=== PATIENT | female | born 1990 | race Caucasian/White ===

== ENCOUNTER 2023-01-21 18:31 | Outpatient (CLI) | payer OTHER, SELFPAY ==
[2023-01-21 18:33] VITALS: BP 139/84; PULSE 95; RESP 18; TEMP 37.3; O2SAT 99; BMI 33.6
--- NOTE | 2023-01-21 18:53 | ED.NURSE ---
spoke with OB RN, transferred to OB via wheelchair
[2023-01-21 19:05] VITALS: PULSE 78; O2SAT 98
[2023-01-21 19:07] VITALS: BP 115/59; PULSE 79
[2023-01-21 19:10] VITALS: PULSE 71; O2SAT 98
[2023-01-21 19:25] VITALS: RESP 18; TEMP 36.6
--- NOTE | 2023-01-21 20:33 | PC.OBNST ---
NST Note NST Note Start: 01/21/23 19:02 Freq: ONCE Status: Active Protocol: Document 01/21/23 19:55 SHIRLENE (Rec: 01/21/23 20:33 SHIRLENE [id number]) NST Note 1 Para (# of births) 0 EDC 02/20/23 Gestational Age In Weeks & Days 35 Weeks & 5 Days Patient Presented with Complaint(s) of Contractions/cramping,Other Other Complaints Chest, RUQ, and lower abdominal tightening. Reactive Yes Appropriate for Gestational Age Yes ERNESTINE Ashley, RNC Date 01/21/23 Reactive Yes Appropriate for Gestational Age Yes ERNESTINE Chase, RN Date 01/21/23 OB NST charge Yes Complete NST Note via Write Note Yes The provider's electronic signature indicates the NST is reactive/appropriate for gestational age. *Note to provider: If an addendum is required, open the patient's chart and click on the note under the Nurse/Allied Health tab.
--- NOTE | 2023-01-21 21:06 | P.OBLDTN_ITS ---
OB - Triage/Final Diagnosis Visit Information Time Seen by Provider: 21:07 Date Seen: 01/21/23 Date of evaluation: 01/21/23 Narrative: The patient is a 32 year old 1 para 0 at 35 weeks gestation who presents with chest pressure and concerns. Patient states that 2 weeks ago she had episode of presyncope while seated. She got hot, nauseated, felt heart was racing and felt like she was going to pass out. She was very dizzy. Her partner checked her pulse and bp which they report her pulse was high, but not sure how high. She has history of getting dizzy off and on. Has history of syncope prior to . However, the last 2 weeks her wooziness and dizziness has been worsening. She describes this has feeling like she might pass out. Feels hot, has palpitations, nausea. She sits down if she has been standing, but it can notably happen while driving or seated. This morning, she woke with rlq pain. This resolved after a few moments of walking around. She has noted her abdomen is more tight than it used to be. She developed chest tightness that waxed and waned throughout the day. When it peaks, she feels out of breath and takes deep breaths trying to remedy it. She reports her heart races and her sob is sometimes associated with her chest tightness. She reports normal movement. No urinary or vaginal discharge. She reports no bleeding. She feels quite winded with any activity. Reports if she goes up the stairs she sees spots and stars and feels woozy. She has been trying to stay hydrated. Her belly has been hard all day but she reports she was not as hydrated today. When she lies on her side she feels her belly soften. She reports no history of blood clot, stroke, heart concern. Reason for evaluation: other (chest tightness) Evaluation Vital signs: Vital Signs - 24 hr 01/21/23 18:33 01/21/23 19:05 01/21/23 19:07 Temperature 99.1 F Pulse Rate 79 Pulse Rate [Right Pulse Oximeter] 95 Respiratory Rate 18 Blood Pressure 115/59 L Blood Pressure [Right Upper Arm] 139/84 Pulse Oximetry 99 98 Oxygen Delivery Method Room Air 01/21/23 19:10 01/21/23 19:25 Temperature 97.9 F Pulse Rate Pulse Rate [Right Pulse Oximeter] Respiratory Rate 18 Blood Pressure Blood Pressure [Right Upper Arm] Pulse Oximetry 98 Oxygen Delivery Method Comments: Exam: Heart: RRR, no murmurs Lungs: Ctab Legs: trace edema, no tenderness, warmth, erythema Abdomen: Gravid, nontender. [place]- 1 contraction in 20 minutes Psych: Appropriate, slightly anxious EKG: rate 82, nsr, right axis deviation No EKg to compare to Fetus (Single) Heart Rate Baseline: 125 Commercial Kitchen Service Technician Variability: Moderate (6-25) Monitor Accelerations: Present Monitor Decelerations: None Final Diagnosis (1) 35 weeks gestation of : Status: Acute Problem details: NST reassuring, 1 contraction in 20 minutes. No active concern for labor. (2) Chest pressure: Status: Acute Problem details: We discuss with chest pressure, palpitations, dizziness, I am not able to complete work up on Labor and delivery. I recommend ER evaluation for rule out PE and cardiac monitoring (EKG was nsr, however, story could be concerning for SVT). Patient declines any further work up and leaves AMA. Form completed to have her leave AMA. will follow up with Dr. Guerrero on Friday as scheduled. Will consider zio vs holter outpatient. (3) Palpitations: Status: Acute (4) Dizziness: Status: Acute
== END 2023-01-21 21:15 | disposition left against medical advice (07) ==
LOC: ED 18:49 → OB OUT 18:50 → OB 18:50
PROVIDERS: Emergency Provider Emergency Medicine Emergency Medical Services; PCP Family Medicine; Visit Provider Family Medicine
DX: O47.03 False labor before 37 completed weeks of gestation, third trimester (principal); Z3A.35 35 weeks gestation of pregnancy; R07.89 Other chest pain
CPT/HCPCS: 59025; 93005; 99213

== ENCOUNTER 2023-02-23 17:20 | Inpatient (IN) | payer OTHER, SELFPAY ==
--- OUTSIDE RECORDS SUMMARY | 2023-02-23 17:29 | XMS_ITS | Referral Summary ---
Author Name Unknown Organization [facility] Address [address] [place] [address] Care Team Providers Care Emergency Dept Tech Name Role Phone Elsewhere, Pcp Primary Care Provider Unavailabl e Source Comments Patient records contain information from all sites at [facility]. For routine questions regarding patient records, call [phone] during business hours, M-F 8:00 AM - 5:00 PM Central Time. Record requests for emergency care only can be directed to [phone] at any time.[facility] Allergies No known active allergies Medications Medication Sig Dispensed Refills Start Date End Date Status amoxicillin-pot clavulanate (AUGMENTIN) 875-125 mg per tabletIndications:Sinu sitis Take 1 tablet by mouth 2 (two) times a day. 14 tablet 0 07/30/2021 Active Active Problems No known active problems Immunizations Name Administration Dates Next Due 4vHPV (discontinued) 12/21/2007,05/04/2007,09/25 DT, Pediatric 09/29/2006 DTP 11/24/1992, 2,1991,1991 DTaP (Infanrix, [employer]) 09/30/2003,10/1996,11/24/1992,1991,1991,1991 H1N1 All Forms 01/09/2009 H1N1 Inj 01/09/2009 HepA, Unspecified 05/04/2007,09/25/2006 HepB, Unspecified 08/18/1995, 6,06/13/1993,1992,01/10/1993 Hib, Unspecified 1991,1991, 2 IPV 11/18/1996, 3,1991,1991 Influenza TIV (IM) 11/28/2009, 9,12/15/2007,2006 Influenza Whole 03/08/2014 Influenza, Seasonal, Injectable 11/29/19 10,11/09/2008,12/15/2007,2006 Influenza, Unspecified 11/12/2016,2015,11/28/2009,2008 MCV4 (Menactra) 08/28/2009 MMR 09/30/2003,09/29/1992 OPV 11/18/1996, 3,1991,1991 Td (Adult), adsorbed 09/30/2003 Tdap 02/11/2013 influenza vaccine quad (FLUZONE/FLUARIX) (6 months and older)(PF) 11/12/2018,11/29/2017 Social History Tobacco Use Types Packs/Day Years Used Date Smoking Tobacco: Never Smokeless Tobacco: Never Tobacco Cessation:Counseling Given: Not Answered Nutrition Answer Date Recorded Nutrition: EVOO Fat Source Unknown 04/13 Nutrition: Servings of Fruits/Vegetables per Day Not on file 04/13/2020 Dental Answer Date Recorded Dental: Regular Dentist Unknown 04/14/19 21 Sex and Gender Information Value Date Recorded Sex Assigned at Not on file Gender Identity Not on file Sexual Orientation Not on file Last Filed Vital Signs Vital Sign Reading Time Taken Comments Blood Pressure 115/84 12/10/2021 3:48 PM CDT Pulse 70 12/10/2021 3:48 PM CDT Temperature 36.6 ??C (97.9 ??F) 12/10/2021 3:48 PM CD T Respiratory Rate 16 02/15/2015 3:22 PM STAFF FORESTER Oxygen Saturation 98% 12/10/2021 3:48 PM CDT Inhaled Oxygen Concentration - - Weight 104 kg (229 lb 4.5 oz) 02/15/2015 3:22 PM STAFF FORESTER Height 184 cm (6' 0.44) 02/15/2015 3:22 PM STAFF FORESTER Body Mass Index 30.72 02/15/2015 3:22 PM STAFF FORESTER Plan of Treatment Not on file Care Teams Emergency Dept Tech Relationship Specialty Start Date End Date Elsewhere, Pcp PCP - General 02/10/18
--- OUTSIDE RECORDS SUMMARY | 2023-02-23 17:29 | XMS_ITS ---
Author Name Unknown Organization [facility] Address [address] [place] [address] Care Team Providers Care Principal Quality Engineer Name Role Phone Unavailable Unavailable Unavailable Surgery Details Not on file Complications Check Surgery Details section. Procedure Estimated Blood Loss Check Surgery Details section. Procedure Findings Check Surgery Details section. Procedure Specimens Taken Check Surgery Details section.
--- OUTSIDE RECORDS SUMMARY | 2023-02-23 17:29 | XMS_ITS | Clinical Summary ---
Author Name Unknown Organization [facility] Address [address] [place] [address] Care Team Providers Care Commissary Assistant Name Role Phone Elsewhere, Pcp Primary Care Provider Unavailabl e Source Comments Patient records contain information from all sites at [facility]. For routine questions regarding patient records, call [phone] during business hours, M-F 8:00 AM - 5:00 PM Central Time. Record requests for emergency care only can be directed to [phone] at any time.[facility] Allergies No known active allergies Medications [...] quad (FLUZONE/FLUARIX) (6 months and older)(PF) 11/12/2018,11/29/2017 Family History Medical History Relation Name Comments Hypertension Father Leukemia Father Lung cancer Mother Prostate cancer Uncle Maternal Relation Name Status Comments Father Mother Uncle Maternal Social History Tobacco Use Types Packs/Day Years [...] T Respiratory Rate 16 02/15/2015 3:22 PM FASHION ARTIST Oxygen Saturation 98% 12/10/2021 3:48 PM CDT Inhaled Oxygen Concentration - - Weight 104 kg (229 lb 4.5 oz) 02/15/2015 3:22 PM FASHION ARTIST Height 184 cm (6' 0.44) 02/15/2015 3:22 PM FASHION ARTIST Body Mass Index 30.72 02/15/2015 3:22 PM FASHION ARTIST Plan of Treatment Health Maintenance Due Date Last Done Comments HIV Screening 1991 Hepatitis C Screening 1991 Depression Screening (Annual PHQ-2) 02/10/2022 COVID-19 Vaccine ( season) 2022 02/04/2022, 09/28/2021, 04/11/2020, Additional history exists Cervical Cancer Screening 02/13/2024 02/12/2021, 03/2013 DTaP,Tdap,and Td Vaccines (11 - Td or Tdap) 11/29/2032 11/29/2022, 02/11/2013, 09/29/2006, Additional history exists Hepatitis B Vaccines Completed 08/18/1995, 03/20/1995, 06/13/1993, Additional history exists HPV Vaccines Completed 12/21/2007, 04/11, 09/25/2006 Influenza Vaccine Completed 11/08/2022, , 11/12/2018, Additional history exists Pneumococcal vaccine (0-64 years) Aged Out No longer eligible based on patient's age to complete this topic Care Teams Commissary Assistant Relationship Specialty Start Date End Date Elsewhere, Pcp PCP - General 02/10/18
[2023-02-23 17:33] VITALS: BP 130/74; PULSE 74; TEMP 36.6
--- NOTE | 2023-02-23 18:53 | PM.OBHPLI ---
OB - H&P: HPI Labor/Induction History of Present Illness Date Seen: 02/23/23 Chief Complaint: The patient is a 32 year old 1 para 1 at 40+2 weeks gestation by 7 week US, who presents for IOL for post dates and unstable lie. Chief complaint: maternity : 1 Para: 0 Narrative: Florinda Saldivar is a 32 year old at 40+1 week by 7 week US here for IOL for unstable lie and post dates. Fetus was found to be breech by US at 37 weeks, was cephalic by 38 weeks and has remained vertex since. She reports occasional mild cramping. No regular contractions. No LOF. Baby has been active. No complications. History of Present Dating criteria: based on 1st trimester US only care: good care Ultrasounds: normal 1st trimester US and normal mid trimester US Medical complications: none Labs Blood type: 0 (-) negative Rubella: immune RPR/VDLR: nonreactive GBS status: negative HBsAG: negative Review of Systems Status of ROS: Reports: 10 or more systems reviewed and unremarkable except as noted in History and below Meds Home Medications and Allergies Home Medications Medication Instructions Recorded Confirmed Type ondansetron 4 mg disintegrating 4 mg PO Q8H PRN nausea/vomiting 01/21/23 02/23/23 History tablet vit no.95-ferrous 1 tab PO DAILY 01/21/23 02/23/23 History fumarate 28 mg-folic acid 800 mcg tablet ( Multivitamins) Allergies Allergy/AdvReac Type Severity Reaction Status Date / Time No Known Drug Allergies Allergy Verified 02/23/23 17:50 OB - H&P: Exam Physical Exam: Vital signs: Pulse BP 74 130/74 02/23/23 17:33 02/23/23 17:33 Constitutional: Constitutional: no acute distress Routine HEENT Exam: Head: Present atraumatic Eye: Present EOMI and PERRL ENT: Present mucous membranes moist Routine Neck Exam: Neck: Present full ROM Routine Respiratory Exam: Respiratory: Present CTA bilaterally Routine Cardiovascular Exam: Cardiovascular: RRR Routine Exam: Perineum Description: Normal Detailed Labor and Delivery Exam: Patient Gravid: Yes Dilation (cm): 1 Effacement (%): 60 Cervix position: mid Consistency: medium Cervical ripeness score: 5 Fetus (Single): Station: -3 Amniotic Membrane Status: intact Routine Extremities Exam: Extremities: Present full ROM Comments: no swelling or redness Routine Skin Exam: Present intact Routine Neurological Exam: Present alert, oriented X3 and CN II-XII intact OB - Problem Based A/P Additional Plan (1) Term : Status: Acute (2) Unstable lie of fetus: Status: Acute Plan Cook catheter placed without difficulty, 60 ml in both uterine and vaginal balloons. Low dose pitocin overnight. Plan continued pitocin in AM with AROM once appropriate. Delivery/Labor/Induction Plan Plan: induction Induction method: Intracervical balloon catheter
[2023-02-23] MEDS: LACTATED RINGERS 1000 ML 1,000 ML 124 ML IV (21:11)
[2023-02-23 21:15] LABS: Basophils Absolute Auto 0.03 K/uL (0.00-0.30); Basophils Percent Auto 0.4 % (0.0-3.0); Eosinophils Absolute Auto 0.02 K/uL (0.00-0.50); Eosinophils Percent Auto 0.3 % (0.0-7.0); Hematocrit 38.4 % (33.0-51.0); Hemoglobin* 12.5 gm/dL (12.0-16.0); Immature Granulocytes Abs Auto 0.01 K/uL (0.00-0.30); Immature Granulocytes Pct Auto 0.1 %; Lymphocytes Percent Auto 23.1 % (20-44); Mean Corpuscular HGB Conc 33 gm/dL (32-36); Mean Corpuscular Hemoglobin 30 pg (26-34); Mean Corpuscular Volume 91 fL (80-100); Monocytes Percent Auto 6.5 % (0.0-11.0); Neutrophils Absolute Auto 5.43 K/uL (1.7-7.0); Neutrophils Percent Auto 69.6 % (42.0-72.0); Platelet Count* 104 K/uL (140-440); RDW Coefficient of Variation % 14.2 % (11.5-15.5); Red Blood Count 4.21 m/uL (4.00-5.20)
[2023-02-23 21:18] LABS: Slide Review Reflex No
[2023-02-23 21:20] VITALS: BP 127/72; PULSE 65; RESP 18; TEMP 37
[2023-02-23] MEDS: OXYTOCIN 30 unit/500 ML in NS 30 UNIT/500 ML BAG IVPB (21:20)
[2023-02-23 22:20] VITALS: BP 119/57; PULSE 61
[2023-02-23 23:21] VITALS: BP 131/68; PULSE 65
[2023-02-23 23:37] VITALS: RESP 18; TEMP 36.7
[2023-02-24] VITALS (111 sets, daily range): BP systolic 87–151; BP diastolic 50–88; PULSE 50–77; RESP 16–20; TEMP 36.4–37.6
[2023-02-24] MEDS: LACTATED RINGERS 1000 ML 1,000 ML 123 ML IV (01:32)
[2023-02-24] MEDS: ONDANSETRON 2 MG/ML inj 4 MG IV ×4 (01:43→21:29)
[2023-02-24] MEDS: hydrOXYzine pamoate 25 MG CAPSULE 100 MG PO (01:43)
[2023-02-24] MEDS: MORPHINE 10 MG/ML inj IM (01:43)
[2023-02-24] MEDS: LACTATED RINGERS 1000 ML 1,000 ML 1200 ML IV (08:54)
[2023-02-24 09:30] LABS: Platelet Count* 88 K/uL (140-440)
[2023-02-24] MEDS: LIDOCAINE 2% (PF) 5 ML VIAL EPIDURAL ×2 (09:37→23:31)
[2023-02-24] MEDS: ROPIVACAINE 0.2% 100 ml 100 ML 12 MG EPIDURAL ×3 (09:48→23:10)
--- NOTE | 2023-02-24 09:54 | PM.ANBPRC ---
[facility] Medical History (Updated 02/23/23 @ 18:57 by Shari Guerrero MD) Depression ?F32.A - Depression, unspecified (ICD-10) PCOS (polycystic ovarian syndrome) ?E28.2 - Polycystic ovarian syndrome (ICD-10) Social History What is your current living situation?: I presently have a place to live Problems where you live: no known problems In the past 12 months, utilities in danger of being shut off: no In past 12 months, lack of transportation kept you from medical appts, meetings, work, or getting things needed for daily living: no In the past 12 mos, have been you worried that your food would run out before you had money to buy more?: never true In the past 12 mos, the food you bought just didn't last and you didn't have money to buy more?: never true Smoking Status: Never smoker How often does anyone, including family, friends and others, physically hurt you: never How often does anyone, including family, friends and others, insult or talk down to you: never How often does anyone, including family, friends and others, threaten you with harm: never How often does anyone, including family, friends and others, scream or curse at you: never Meds Home Medications and Allergies Home Medications Medication Instructions Recorded Confirmed Type ondansetron 4 mg disintegrating 4 mg PO Q8H PRN nausea/vomiting 01/21/23 02/23/23 History tablet vit no.95-ferrous 1 tab PO DAILY 01/21/23 02/23/23 History fumarate 28 mg-folic acid 800 mcg tablet ( Multivitamins) Allergies Allergy/AdvReac Type Severity Reaction Status Date / Time No Known Drug Allergies Allergy Verified 02/24/23 09:31 Results Labs Labs: Laboratory Results - last 24 hr 02/23/23 02/24/23 21:08 09:20 WBC 7.80 RBC 4.21 Hgb 12.5 Hct 38.4 MCV 91 MCH 30 MCHC 33 RDW Coeff of Amado 14.2 Plt Count 104 L 88 L Neut % (Auto) 69.6 Lymph % (Auto) 23.1 [place] % (Auto) 6.5 Eos % (Auto) 0.3 Baso % (Auto) 0.4 Neut # (Auto) 5.43 Lymph # (Auto) 1.80 [place] # (Auto) 0.50 Eos # (Auto) 0.02 Baso # (Auto) 0.03 Abs Immat Gran (auto) 0.01 Imm/Tot Granulo (auto) 0.1 Blood Type O Negative Antibody Screen POSITIVE Vital Signs Vital Signs: Last Vital Signs Temp 97.8 F 02/24/23 09:15 Pulse 76 02/24/23 09:54 Resp 20 02/24/23 09:15 BP 126/66 02/24/23 09:54 Height: 182.88 cm Anesthesia Procedures Epidural Insertion Patient Location: OB Start Time: 09:35 Stop Time: 10:00 Start Date: 02/24/23 Stop Date: 02/24/23 Reason for Block: primary anesthetic Patient Position: sitting Performed By: Jose Manuel Pratt Preanesthetic Checklist: IV checked, risks and benefits discussed, surgical consent, monitors and equipment checked, pre-op evaluation, timeout performed and anesthesia consent Prep: chlorhexidine gluconate Monitoring: blood pressure monitoring, potato sorter, continuous pulse oximetry and heart rate Approach: midline Vertebral Space: lumbar (1-5) Needle Type: Tuohy needle Injection Technique: continuous catheter (catheter) Needle gauge: 17 Needle Length (cm): 10 cm Needle Insertion Depth (cm): 6 Catheter Gauge: 19 Catheter Type: multi-orifice Catheter at skin depth (cm): 11 Test Dose Result: negative and lidocaine 1.5% with epinephrine 1 to 200,000
[2023-02-24] MEDS: PHENYLEPHRINE 100 MCG/ML SYRINGE IVP ×2 (10:25→10:38)
[2023-02-24] MEDS: ePHEDrine sulfate 5 MG/ML inj 10 MG IVP ×2 (10:44→14:09)
[2023-02-24] MEDS: LACTATED RINGERS 1000 ML 1,000 ML 1125 ML IV (10:47)
[2023-02-24] MEDS: fentaNYL 100 MCG/2 ML inj EPIDURAL ×2 (12:11→23:51)
[2023-02-24 12:12] LABS: Creatinine* 0.6 mg/dL (0.5-1.5); Estimated Glomerular Filt Rate 123 ml/min
[2023-02-24 12:13] LABS: Alanine Aminotransferase* 26 U/L (4-35); Aspartate Amino Transferase* 27 U/L (12-35); Blood Urea Nitrogen* 7 mg/dL (5-24)
--- NOTE | 2023-02-24 12:38 | P.OBPN_ITS ---
Subjective Date Seen: 02/24/23 Narrative: Florinda is a 32 yo here for IOL for post dates, unstable lie. She had a cook catheter overnight and pitocin started overnght as well. After removal of the cook catheter this morning, pitocin was increased per protocol and contractions became more uncomfortable. She had an epidural placed and has good anesthesia now. Platelets were noted to be low at 88. BPs have been within normal range and pre-e labs otherwise normal. She underwent AROM with large amount of clear fluid. Objective Vital Signs: Last Vital Signs Temp 97.8 F 02/24/23 11:36 Pulse 55 L 02/24/23 12:24 Resp 20 02/24/23 09:15 BP 107/56 L 02/24/23 12:24 Pelvic Exam Dilation (cm): 4.5 Effacement (%): 90 Station: -2 Contractions Monitor mode: External Contraction pattern: Regular Contraction intensity: Moderate Pitocin Rate (mU/min): 12 Assessment Assessment: active labor Station: -2 Amniotic Membrane Status: AROM Status: Category l Heart Rate Baseline: 125 Commodities Requirements Analyst Variability: Moderate (6-25) Monitor Accelerations: Present Monitor Decelerations: None Plan Plan: Continue pitocin per protocol. Anticipate
[2023-02-24] MEDS: LACTATED RINGERS 1000 ML 1,000 ML 125 ML IV ×2 (15:31→19:03)
--- NOTE | 2023-02-24 17:23 | P.OBPN_ITS ---
Subjective Date Seen: 02/24/23 Narrative: Patient has not made significant change since AROM and it has been difficult to titrate pitocin with heart tracing having a wandering baseline. IUPC and FSE placed to help with monitoring and pitocin titration Objective Vital Signs: Last Vital Signs Temp 98.4 F 02/24/23 16:39 Pulse 67 02/24/23 17:19 Resp 16 02/24/23 13:22 BP 132/70 02/24/23 17:19 Pelvic Exam Dilation (cm): 4.5 Effacement (%): 80 Station: 0 Contractions Monitor mode: External Contraction pattern: Regular Contraction intensity: Moderate Pitocin Rate (mU/min): 12 Assessment Assessment: active labor Station: 0 Amniotic Membrane Status: AROM Status: Category ll Heart Rate Baseline: 140 [place] Variability: Moderate (6-25) Monitor Accelerations: Present Monitor Decelerations: Variable Plan Plan: Continue to titrate pitocin as able. If arrest of dilation or non reassuring FHTs, will need to consult sales consulting director.
--- NOTE | 2023-02-24 19:40 | PM.OBPNL ---
Subjective Date Seen: 02/24/23 Narrative: Florinda is at 40+3 IOL for post dates, unstable lie. Fetus was having recurrent late decelerations, amnioinfusion started and pitocin decreased with improvement in FHTs. She is comfortable with her epidural, but contractions no longer adequate. Objective Vital Signs: Last Vital Signs Temp 97.9 F 02/24/23 19:31 Pulse 56 L 02/24/23 19:27 Resp 16 02/24/23 19:31 BP 123/67 02/24/23 19:27 Pelvic Exam Dilation (cm): 5.5 Effacement (%): 80 Station: 0 Contractions Monitor mode: External Contraction pattern: Regular Contraction intensity: Moderate Pitocin Rate (mU/min): 6 Assessment Station: 0 Amniotic Membrane Status: AROM Status: Category ll Heart Rate Baseline: 140 Half-[address] Variability: Moderate (6-25) Monitor Accelerations: Absent Monitor Decelerations: Variable Plan Plan: Discussed case and reviewed strip with screen printing loader unloader distribution accounting clerk. If fetus continues to tolerate labor, will retitrate pitocin to get adequate labor. If failure to progress or intolerance of labor, will plan for delivery.
--- NOTE | 2023-02-24 21:34 | PM.OBPNL ---
Subjective Date Seen: 02/24/23 Narrative: Florinda is doing well. Feeling tired, frustrated with slow progress, Pitocin has been slowly titrated with good tolerance to contractions by infant. Most concerning is poor urine output. Not much seen on bladder scan and flushing the catheter did not produce much additional output. Objective Vital Signs: Last Vital Signs Temp 98.7 F 02/24/23 21:25 Pulse 52 L 02/24/23 21:27 Resp 16 02/24/23 21:25 BP 114/58 L 02/24/23 21:27 Pelvic Exam Dilation (cm): 6.5 Effacement (%): 80 Station: 0 Contractions Monitor mode: External Contraction pattern: Regular Contraction intensity: Moderate Pitocin Rate (mU/min): 6 Assessment Assessment: induction ongoing Station: 0 Amniotic Membrane Status: AROM Status: Category ll Heart Rate Baseline: 140 Nutritional Services Host Variability: Moderate (6-25) Monitor Accelerations: Present Monitor Decelerations: Variable Plan Plan: Continue pitocin titration as fetus is tolerating well and is making cervical change.
[2023-02-24] MEDS: LACTATED RINGERS 1000 ML 1,000 ML 50 ML IV (23:10)
[2023-02-25] VITALS (28 sets, daily range): BP systolic 109–146; BP diastolic 58–105; PULSE 54–111; RESP 16–18; TEMP 36.3–36.8; O2SAT 90–100
[2023-02-25 00:24] LABS: Basophils Percent Auto 0.1 % (0.0-3.0); Hematocrit 38.6 % (33.0-51.0); Hemoglobin* 12.8 gm/dL (12.0-16.0); Immature Granulocytes Pct Auto 0.2 %; Lymphocytes Percent Auto 6.6 % (20-44); Mean Corpuscular HGB Conc 33 gm/dL (32-36); Mean Corpuscular Hemoglobin 30 pg (26-34); Mean Corpuscular Volume 90 fL (80-100); Monocytes Percent Auto 6.1 % (0.0-11.0); Platelet Count* 87 K/uL (140-440); Red Blood Count 4.27 m/uL (4.00-5.20); White Blood Count* 16.66 K/uL (4.50-11.00)
[2023-02-25 00:25] LABS: Slide Review Reflex No
[2023-02-25 00:40] LABS: INR 0.93 (0.91-1.10); Partial Thromboplastin Time* 26 Seconds (23-33)
[2023-02-25 00:42] LABS: Fibrinogen* 592 mg/dL (200-450)
--- NOTE | 2023-02-25 01:07 | P.ANBPRC_ITS ---
[facility] Medical History (Updated 02/23/23 @ 18:57 by Shari Guerrero MD) Depression ?F32.A - Depression, unspecified (ICD-10) PCOS (polycystic ovarian syndrome) ?E28.2 - Polycystic ovarian syndrome (ICD-10) Social History What is your current living situation?: I presently have a place to live Problems where you live: no known problems In the past 12 months, utilities in danger of being shut off: no In past 12 months, lack of transportation kept you from medical appts, meetings, work, or getting things needed for daily living: no In the past 12 mos, have been you worried that your food would run out before you had money to buy more?: never true In the past 12 mos, the food you bought just didn't last and you didn't have money to buy more?: never true Smoking Status: Never smoker How often does anyone, including family, friends and others, physically hurt you : never How often does anyone, including family, friends and others, insult or talk down to you: never How often does anyone, including family, friends and others, threaten you with harm: never How often does anyone, including family, friends and others, scream or curse at you: never Meds Home Medications and Allergies Home Medications Medication Instructions Recorded Confirmed Type ondansetron 4 mg disintegrating 4 mg PO Q8H PRN nausea/vomiting 01/21/23 02/23/23 History tablet vit no.95-ferrous 1 tab PO DAILY 01/21/23 02/23/23 History fumarate 28 mg-folic acid 800 mcg tablet ( Multivitamins) Allergies Allergy/AdvReac Type Severity Reaction Status Date / Time No Known Drug Allergies Allergy Verified 02/24/23 09:31 Results Labs Labs: Laboratory Results - last 24 hr 02/24/23 02/24/23 02/25/23 09:20 10:58 00:15 WBC 16.66 H RBC 4.27 Hgb 12.8 Hct 38.6 MCV 90 MCH 30 MCHC 33 RDW Coeff of Amado 14.0 Plt Count 88 L 87 L Neut % (Auto) 87.0 H Lymph % (Auto) 6.6 L [place] % (Auto) 6.1 Eos % (Auto) 0.0 Baso % (Auto) 0.1 Neut # (Auto) 14.50 H Lymph # (Auto) 1.10 [place] # (Auto) 1.00 H Eos # (Auto) 0.00 Baso # (Auto) 0.00 Abs Immat Gran (auto) 0.00 Imm/Tot Granulo (auto) 0.2 INR 0.93 APTT 26 Fibrinogen 592 H BUN 7 Creatinine 0.6 Estimated GFR 123 AST 27 ALT 26 Vital Signs Vital Signs: Last Vital Signs Temp 97.6 F 02/24/23 22:26 Pulse 63 02/25/23 01:05 Resp 16 02/24/23 22:26 BP 118/81 02/25/23 01:05 Pulse Ox 100 02/25/23 01:00 Height: 182.88 cm Anesthesia Procedures Intrathecal Patient Location: OB Start Time: 00:01 Stop Time: 00:15 Start Date: 02/25/23 Stop Date: 02/25/23 Reason for Block: procedure for pain Patient Position: sitting Performed By: Jose Manuel Pratt Preanesthetic Checklist: IV checked, site marked, risks and benefits discussed, monitors and equipment checked, pre-op evaluation, timeout performed and anesthesia consent Prep: chlorhexidine gluconate Monitoring: blood pressure monitoring, continuous pulse oximetry and heart rate Approach: midline Vertebral Space: lumbar (1-5) Needle Type: Sprotte Injection Technique: single-shot Needle gauge: 24 Needle Length (cm): 10 cm
[2023-02-25] MEDS: ONDANSETRON 2 MG/ML inj 4 MG IV ×2 (01:20→06:35)
[2023-02-25] MEDS: TRANEXAMIC ACID 100 MG/ML INJ 1000 MG IV (02:34)
--- NOTE | 2023-02-25 03:04 | W.PM.VAGDEL1 ---
Procedure Delivery date: 02/25/23 Procedure Done: Global Events: Meconium Stained Fluid Delivery augmentation: rupture of membranes Delivery monitor: external FHT and internal uterine Route of delivery: Laceration description: Perineal - 2nd Degree Delivery repair: Vicryl Estimated blood loss (mL): 250 Anesthesia type: Epidural Disposition: floor Narrative: The patient is a 32 year-old admitted on 02/23/2023 at 40 Weeks, 1 Days gestation for IOL for post dates and unstable lie.? Cervical exam on admission was 1 cm/40 % effaced/-3 station with membranes intact in vertex presentation.? Contractions were absent.? heart rate demonstrated baseline 140 bpm with moderate variability, + accelerations, - decelerations; a category 1 tracing.?Cook catheter was placed overnight and pitocin started overnight as well. Pitocin continued on the morning of 02/24/23 and AROM occurred on 02/24/2023 at 1230 with clear fluid. ? Labor Analgesia:? epidural ? Pitocin:? yes ? Labor onset:? 02/24/23 at 1030 ? Complete:? 02/25/23 at 0201 ? Pushing:? 0209 ? heart tones during second stage were category 2. ? At 0235 a viable male infant delivered in vertex OP presentation over intact perineum via spontaneous vaginal delivery.? Infant was placed on maternal abdomen.? Cord was clamped and cut after a 30-60 second delay.? Nose and mouth were bulb suctioned.? Infant weight 9 lb 2 oz? 7 at 1 minute and 9 at 5 minutes.? Shoulder dystocia: no.? Nuchal cord: no. Due to prolonged labor, TXA given as was imminent. ? Placenta delivered spontaneously and complete at 0238 with a 3 vessel cord. ? Mother and were stable after delivery. ? Lacerations:? 2nd degree, repaired with 3-0 vicryl suture. ? Blood loss: 250 mL. Blood loss measurement type: QBL ? Sponge and needles counts are correct. [place] Gender: Male presentation: vertex Placental Delivery Description: Spontaneous Cord Description: 3 Vessels
[2023-02-25] MEDS: CALCIUM CARBONATE 500 MG CHEW PO (03:09)
[2023-02-25] MEDS: ACETAMINOPHEN 500 MG TABLET 1000 MG PO ×3 (03:46→16:40)
[2023-02-25] MEDS: IBUPROFEN 600 MG TABLET PO ×3 (06:34→19:50)
[2023-02-25] MEDS: DOCUSATE SODIUM 100 MG CAPSULE PO (10:22)
--- NOTE | 2023-02-25 12:36 | PM.ANPOST ---
Post Anesthesia Note Post Anesthesia Note Patient seen: Inpatient Respiratory Status: adequate Cardiovascular Status: adequate Mental Status: baseline Pain: adequate Temp: baseline Anesthetic awareness: N/A Complications: none Follow care: none
[2023-02-25] MEDS: MAG HYDROX/ALUMINUM HYD/SIMETH 30 ML ORAL.SUSP PO (17:14)
[2023-02-26 00:50] VITALS: BP 125/67; PULSE 78; RESP 18; TEMP 36.8; O2SAT 97
[2023-02-26 03:56] VITALS: BP 104/64; PULSE 78; RESP 18; TEMP 36.7; O2SAT 99
[2023-02-26] MEDS: IBUPROFEN 600 MG TABLET PO (04:00)
--- NOTE | 2023-02-26 07:10 | P.DS_ITS ---
DS: Providers Provider Date Seen: 02/26/23 Date of admission: 02/23/23 17:20 Primary care physician: Shari Guerrero MD Admitting Clinician: Shari Guerrero MD Attending Physician on discharge: Shari Guerrero MD DS: Diagnosis Discharge Diagnosis (1) Vaginal delivery: Status: Acute Exam Narrative: Exam Narrative: Gen: No acute distress CV: Regular rate and rhythm, normal S1,S2, no murmurs Resp: Normal rate and effort, clear to auscultation bilaterally Abd: Soft, uterus firm and nontender at umbilicus Ext: Warm, dry, 2+ pedal pulses, no edema bilaterally. Calves non-tender to palpation. Const: Vital Signs, click to edit/add: Vital Signs - 24 hr 02/25/23 07:39 02/25/23 11:38 02/25/23 16:27 Temperature 97.8 F 97.6 F 97.7 F Pulse Rate [Pulse Oximeter] 59 L 63 78 Respiratory Rate 16 18 16 Blood Pressure [ri ght arm\] 124/82 109/74 110/75 Pulse Oximetry 96 97 97 Oxygen Delivery Me thod Room Air Room Air 02/25/23 19:44 02/26/23 00:50 02/26/23 03:56 Temperature 97.4 F L 98.2 F 98.1 F Pulse Rate [Pulse Oximeter] 78 78 78 Respiratory Rate 18 18 18 Blood Pressure [ri ght arm\] 112/76 125/67 104/64 Pulse Oximetry 99 97 99 Oxygen Delivery Me thod Room Air Room Air Room Air OB - DS: Summary Hospital Course Hospital Course: The patient is a 32 year old G 1 P 1 at 40.3 weeks gestation that was admitted to the Center on 02/23/23 for post dates and unstable lie (breech at 37w). She had a prolonged induction with category 2 strip, otherwise uncomplicated vaginal delivery. She delivered a viable male infant. She received TXA at time of delivery with prolonged labor and low platelet. She is breast feeding. the patient has done well. Peripartum Data Infant delivery method: Vaginal Laceration description: Perineal - 2nd Degree Procedures: Laceration repaired [place] Gender: Male Status at Discharge Functional status at discharge: independent ambulation Overall status at discharge: patient is progressing back to baseline Time Spent with Patient Time attestation: Total time spent providing and/or coordinating discharge services: Time spent: Less than 30 minutes Discharge Plan Discharge Disposition: Home, Self-Care Date of Admission: 02/23/23 17:20 Primary Care Provider: Shari Guerrero Condition: Stable Anticipated Discharge Date/Time: 02/26/23 10:00 Discharge Medications: Continued PNV cmb#95-ferrous fumarate-FA [ Multivitamins] 28 mg iron- 800 mcg tablet 1 tab PO DAILY Discontinued ondansetron 4 mg tablet,disintegrating 4 mg PO Q8H PRN (Reason: nausea/vomiting) Discharge Orders: Discharge Order (Routine); Ordered 02/26/23 Ordered By: Lucy Riley Patient Education: OB Care, OB Vaginal/Breast Feeding Follow Up Appointments: Shari Guerrero MD [Primary Care Provider] - Forms: [employer] Info Instructions DS:Data Additional Comments Additional comments: - Pelvic rest for 6 weeks (no intercourse, tampons or douching), or until one week after vaginal bleeding stops. - Daily activities for the first week should be limited to taking care of patient and her baby, and only as tolerated. - Call MD if fever > 100.4 degrees, bleeding more than 1 pad / hour, foul- smelling discharge, passage of golf-ball sized blood clots, or worsening of pain not controlled by medications. - Counseled on signs of post- depression - Contraception: discuss at visit
[2023-02-26 08:10] LABS: Hemoglobin* 10.7 gm/dL (12.0-16.0)
[2023-02-26] MEDS: DOCUSATE SODIUM 100 MG CAPSULE PO (08:42)
[2023-02-26] MEDS: ACETAMINOPHEN 500 MG TABLET 1000 MG PO (08:45)
[2023-02-26 10:40] VITALS: BP 135/86; PULSE 80; RESP 16; O2SAT 97
== END 2023-02-26 13:40 | disposition home or self-care (01) | DRG 806 ==
PROVIDERS: Nurse Anesthetist, Certified Registered; Admitting Provider Family Medicine; PCP Family Medicine; Visit Provider Family Medicine
DX: O48.0 Post-term pregnancy (principal); O63.9 Long labor, unspecified; Z37.0 Single live birth; O76 Abnormality in fetal heart rate and rhythm complicating labor and delivery; O70.1 Second degree perineal laceration during delivery; O77.0 Labor and delivery complicated by meconium in amniotic fluid; O32.0XX0 Maternal care for unstable lie, not applicable or unspecified; O99.344 Other mental disorders complicating childbirth; F32.A Depression, unspecified; O99.284 Endocrine, nutritional and metabolic diseases complicating childbirth; E28.2 Polycystic ovarian syndrome; Z3A.40 40 weeks gestation of pregnancy
CPT/HCPCS: 01967; 36415; 76815; 82565; 84450; 84460; 84520; 85018; 85025; 85049; 85384; 85461; 85610; 85730; 86850; 86870; 86880; 86900; 86901; A9270; C1726; J2270; J2371; J2405; J2791; J2795; J3010; J7120

== ENCOUNTER 2023-05-06 07:01 | Day surgery (SDC) | payer OTHER, SELFPAY ==
[2023-05-06 07:13] VITALS: BP 110/64; PULSE 68; RESP 16; TEMP 36.4; O2SAT 98
[2023-05-06 07:16] VITALS: BMI 32.3
[2023-05-06 07:31] LABS: Ur HCG Qualitative* Negative (Negative)
[2023-05-06] MEDS: LACTATED RINGERS 1000 ML 1,000 ML 100 ML IV (07:55)
[2023-05-06] MEDS: SODIUM CHLORIDE 0.9 % (FLUSH) 10 ML SYRINGE IVF (07:55)
--- NOTE | 2023-05-06 08:10 | W.PM.H&PU ---
History & Physical Update History & Physical Update H&P Reviewed and patient assessed: No changes noted
[2023-05-06] MEDS: BUPIVACAINE 0.25% 30 ML INJECTION (08:29)
--- NOTE | 2023-05-06 09:25 | PM.GSPRC ---
Operative Note Date of procedure: 05/06/23 Pre-op diagnosis: 1. Symptomatic left posterior thigh mass. Post-op diagnosis: 1. Left posterior thigh lipoma. 2. Left posterior thigh cyst of unknown etiology, possible traumatic seroma. Type of Procedure: 1. Excision of left posterior thigh mass. Indications: 32-year-old female presented to clinic for evaluation of left posterior thigh mass. She initially noticed it 5-6 years ago after she fell. After that fall the area in the left posterior thigh just below the buttocks had a large bruise. The bruise went away but the mass stayed. Patient did not have pain at the mass but constantly felt presence of it. On clinical exam in the left posterior thigh just inferior to the buttocks fold there was a horizontally oriented soft tissue mass that was measuring 16 x 3 cm. It was difficult to tell how deep the mass was but it was mobile. Given patient's symptoms and her physical exam, excision of this mass in the operating room was recommended. The procedure was discussed in detail. The risks associated procedure including infection, bleeding, and possible recurrence of the mass were all discussed with the patient, and she agreed to proceed. Procedure Description: After discussing the risks and benefits of the procedure, the patient signed informed consent.? The operative site was marked and the patient was brought to the operating room and placed in a lateral decubitus position on the operating table in supine position.? Care was taken to pad the patient's pressure points.?? The patient was then sedated by anesthesia.?? The operative site was then prepped and draped in the usual sterile fashion.? A time-out was then performed. Local anesthetic was injected at the surgical site. An elliptical skin incision was made with a scalpel. Dermis and subcutaneous fat were divided with cautery. A fatty appearing mass was identified and was dissected circumferentially with cautery down to the muscle fascia. Just posterior to this mass (overlying the muscle fascia) a small cystic structure was identified that was approximately 3 x 4 cm. When this was incised, clear fluid came out from this cystic structure with small pea-sized pieces of fat. This dissection was away from any joints and should not have been a synovial cyst. The mass was excised first and sent to pathology. The mass was measuring 12.5 x 6.5 cm. The cystic structure was blunt and did not appear to extend anywhere but was tightly adherent to the fascia. This was then excised and sent to pathology in a separate specimen jar. Since patient had previous trauma, this was thought to be a seroma cavity. Additional local anesthetic was then injected at the surgical site. Hemostasis was achieved with cautery. The incision was then closed in layers with interrupted 2-0 and 3-0 Vicryl sutures. The length of the incision was 13 cm. Steri-Strips and sterile dressings were placed over the incision. All counts were correct at the end of the case. ? The patient was then woken and transported to the recovery area in stable condition. ? The patient tolerated the procedure well. Findings: Posterior thigh lipoma with underlying cyst that was suspicious for traumatic seroma cavity. Anesthesia: MAC and local Surgeon: Javier Richradson MD Additional Specimen Information: 1. Left posterior thigh lipoma. 2. Cystic structure underlying the left posterior thigh lipoma. Condition: stable Disposition: same day
[2023-05-06 09:37] VITALS: BP 102/67; PULSE 71; RESP 16; TEMP 37.3; O2SAT 99
--- NOTE | 2023-05-06 09:41 | W.ANESCHARGE ---
Anesthesia Charges Start Date/Time Anesthesia Start Date: 05/06/23 Anesthesia Start Time: 08:11 Stop Date/Time Anesthesia Stop Date: 05/06/23 Anesthesia Stop Time: 09:37
[2023-05-06 09:45] VITALS: BP 105/62; PULSE 58; RESP 16; O2SAT 100
--- NOTE | 2023-05-06 09:58 | W.ANESCHARGE ---
Anesthesia Charges Start Date/Time Anesthesia Start Date: 05/06/23 Anesthesia Start Time: 08:11 Stop Date/Time Anesthesia Stop Date: 05/06/23 Anesthesia Stop Time: 09:37
[2023-05-06 10:03] VITALS: BP 119/66; PULSE 54; RESP 16; O2SAT 99
[2023-05-06 10:15] VITALS: BP 110/64; PULSE 67; RESP 16; O2SAT 98
[2023-05-06 10:30] VITALS: BP 115/57; PULSE 72; RESP 16; O2SAT 97
== END 2023-05-06 10:57 | disposition home or self-care (01) ==
PROVIDERS: PCP Family Medicine; Visit Provider Surgery
PROC: (CPT 27337; principal; 2023-05-06 08:15)
DX: D17.24 Benign lipomatous neoplasm of skin and subcutaneous tissue of left leg (principal); L72.9 Follicular cyst of the skin and subcutaneous tissue, unspecified
CPT/HCPCS: 27337; 00300; 00400; 81025; 88304; 88377; J0665; J1100; J1885; J2250; J2405; J2704; J3010; J3490; J7120

== ENCOUNTER 2024-08-12 06:48 | Inpatient (IN) | payer BC, SELFPAY ==
[2024-08-12] VITALS (63 sets, daily range): BP systolic 105–127; BP diastolic 56–81; PULSE 60–82; RESP 14–20; TEMP 36–36.9; O2SAT 93–100; BMI 35.4
[2024-08-12] MEDS: CALCIUM CARBONATE 500 MG CHEW PO (03:42)
--- NOTE | 2024-08-12 04:05 | CRLHL7_ITS ---
For Patients: As a result of the Century Cures Act, medical imaging exams and procedure reports are released immediately into your electronic medical record. You may view this report before your referring provider. If you have questions, please contact your health care provider. INDICATION: Patient with few contractions in a fairly significant episode of bleeding. Currently in labor and delivery on monitoring. COMPARISON: None TECHNIQUE: Farley-scale and color Doppler of the gravid uterus and fetus from a transabdominal approach. FINDINGS: Provided gestational age: 32 weeks 5 days there is a single intrauterine gestation in vertex presentation. heart rate is 155 beats per minute and regular. The placenta is posterior. There is some limited visualization of the placenta due to shadowing from the fetus. There may be some partial detachment along the most superior left sided margin of the placenta but there is not a discrete retroplacental hematoma or collection. Qualitatively the amniotic fluid volume is normal. The deepest vertical pocket is 8.0 cm which is normal. There is some debris and incomplete septations in the amniotic fluid. IMPRESSION: There are some irregular echoes in the amniotic fluid and there may be a small area of placental detachment along the superior left margin. No clear retroplacental hematoma. There is some difficult visualization of the placenta due to shadowing from the fetus. Placental abruption can have this appearance. Discussed with Dr. Guerrero at 5:33 a.m. on 08/12/2024. Dictated by Sophie Walls MD @ 08/12/2024 5:34:17 AM (Electronically Signed)
[2024-08-12] MEDS: ONDANSETRON 2 MG/ML inj 4 MG IVP (05:37)
--- NOTE | 2024-08-12 05:43 | PM.OBHPLI ---
OB - H&P: HPI Labor/Induction History of Present Illness Date Seen: 08/12/24 Chief Complaint: The patient is a 34 year old 2 para 1 at 32+5 weeks gestation by LMP confirmed with 7 week US, who presents with vaginal bleeding. Chief complaint: maternity Narrative: Florinda Saldivar is a 34 year old at 32+5 weeks here for vaginal bleeding. complicated by hyperemesis throughout. Today she called clinic feeling lightheaded, possible decreased movement. Was initially assessed aroudn 2100 and had a reactive strip, felt better after IV fluids. She returned home and shortly after had an episode of bright red bleeding and returned to the center. She had a moderate amount of bright red blood on a regular pad, a large pp pad was placed and after an hour had soaked through. Patient is having low abdominal cramping with mild contractions every 3-5 minutes. History of Present Dating criteria: based on LMP care: good care Ultrasounds: normal 1st trimester US and normal mid trimester US Medical complications: psychiatric (depression) Labs Blood type: 0 (-) negative Rubella: immune RPR/VDLR: nonreactive GBS status: unknown HBsAG: negative Review of Systems Status of ROS: Reports: 6 or more systems reviewed and unremarkable except as noted in History and below Meds Home Medications and Allergies Home Medications ?Medication ?Instructions ?Recorded ?Confirmed ?Type vit no.95-ferrous 1 tab PO DAILY 01/21/23 08/12/24 History fumarate 28 mg-folic acid 800 mcg tablet ( Multivitamins) fluoxetine 10 mg capsule (Prozac) 10 mg PO DAILY 05/05/23 08/12/24 History hydrocodone 5 mg-acetaminophen 325 1 tab PO Q6H PRN pain #20 tabs 05/06/23 08/12/24 Rx mg tablet ondansetron 4 mg disintegrating 4 mg PO Q8H PRN 08/11/24 08/12/24 History tablet Allergies Allergy/AdvReac Type Severity Reaction Status Date / Time No Known Drug Allergies Allergy Verified 05/06/23 07:10 OB - H&P: Exam Physical Exam: Vital signs: Temp Pulse BP Pulse Ox 98.2 F 72 106/58 L 99 08/12/24 04:23 08/12/24 04:23 08/12/24 04:23 08/12/24 03:23 Constitutional: Constitutional: no acute distress Routine HEENT Exam: Head: Present atraumatic and normocephalic Eye: Present EOMI and normal appearance ENT: Present mucous membranes moist Routine Respiratory Exam: Respiratory: Present CTA bilaterally Routine Cardiovascular Exam: Cardiovascular: RRR Routine Exam: External: Present normal external exam Comments: Speculum exam shows minimal blood tinged cerivcal mucous with no active bleeding. Cervix visually closed. Detailed Labor and Delivery Exam: Patient Gravid: yes Fetus (Single): Heart Rate Baseline: 130 Monitor Accelerations: Present Monitor Decelerations: Variable Intermediate Variability: Moderate (6-25) Routine Extremities Exam: Extremities: Present full ROM and normal inspection Routine Skin Exam: Present intact Routine Neurological Exam: Present alert, oriented X3 and CN II-XII intact Routine Psychiatric Exam: Present normal affect and normal thought process OB - Results Labs Labs: CBC,fibrinogen, KB, PTT, INR pending Imaging OB US: Attestation: I have reviewed the pertinent imaging results. Radiologist's impression: US: limited by shadowing of fetus. There is a small area of bleeding at the superior placental edge, possible partial placental detachment with debris floating. There is no classic abruption or retroplacental blood collection. OB - Problem Based A/P Additional Plan (1) with 32 completed weeks gestation: Status: Acute (2) Vaginal bleeding during : Problem details: concern for placental abruption Status: Acute Plan 1. labs pending. 2. Betamethasone dose #1 given 3. Consult appian bpm developer to help with management and delivery planning vs transfer
[2024-08-12] MEDS: LACTATED RINGERS 1000 ML 1,000 ML 200 ML IV ×3 (05:46→08:45)
--- NOTE | 2024-08-12 05:50 | PM.OBCN1 ---
OB - CN: HPI Date of Consult Time Seen by Provider: 05:50 Date Seen: 08/12/24 Patient: Stephanie Patient Consult date: 08/12/24 Requesting Physician: Shari Guerrero MD Primary Care Provider: Shari Guerrero MD Consult Narrative Narrative: The patient is a 34 year old G 2 P 1 at 32w5d gestation that was admitted to the Center on for vaginal bleed. is complicated by depression, nausea/vomiting and obesity. She is an established patient of Dr. Guerrero at [facility] who requested OB consultation at 0511 in the setting of possible placental abruption. Florinda presented to OB triage overnight, where she had some vague feeling off or lightheaded and possible decreased movement. She presented to Care, where status was reassuring and reactive. She received an IV fluid bolus, noted resolution of her symptoms. She did have a cervical exam while here, cervix was noted to be closed. Patient was discharged home. She returned at 0245 this morning, after having about a gush of bright red bleeding at home. She has had pink to red bleeding with wiping since. On arrival, patient was well-appearing with normal maternal vital signs. status with somewhat interrupted, but appears to be reactive with a baseline of 120 beats per minute, moderate variability and 15 x 15 accelerations present, no decelerations. was then notified about a second episode of bright red vaginal bleeding, where patient saturated the entirety of a large maxi pad. This was not weighed but was examined by RN and Dr. Guerrero. She completed a speculum exam, noted cervix to be closed, no apparent vaginal or cervical irritation/trauma to explain bleeding. No active bleeding through the os. No signs/symptoms of abnormal vaginal discharge or infection. A bedside ultrasound was requested with Radiology, where tech noted concern for potential placental abruption findings. After being notified by Dr. Guerrero, I requested stat type and screen, CBC, coags and K/B to assess for fetomaternal hemorrhage. Requested to call Radiology for stat read of the US. Presented to the bedside - at which time labs were just being drawn, a second IV attempt was ongoing. Dr. Guerrero had just received report from Radiology. Patient affirmed the above history. She notes that she was having slight cramping in the last 24 hours, but now has had onset of regular painful contractions. About an hour ago, she would say these were occurring every 5 minutes, more recently she is now having to pause through conversation for contractions every 2-3 minutes. She rates these as a 6/10 in severity. In between her contractions, she does endorse low constant pelvic pain. She has been up to use the restroom once, with just small amount of bleeding on wiping. No anna vaginal bleeding ongoing. She again described two large volume gush events - one at home, one while here. Patient denies any known leaking of amniotic fluid. She notes persistent decreased movement. She has otherwise been in her normal state of health. She denies any significant chronic medical conditions such as hypertension, cardiovascular disease, pulmonary disease. Denies complications of such as gestational diabetes or hypertensive disorders of . Dr. Guerrero notes on her last US at [facility] EFW was approximately 70%ile with MVP of 9.1 but BULMARO of 21. On review of our internal EMR, last labs demonstrated thrombocytopenia of 87 on 02/25/23 with the delivery of her last child. Dr. Guerrero looked in the liner records and notes she previously had normal platelets 2 years ago, baseline platelets this pregancy of 140. She has mayda hd a Hematology workup. She has never had abdominal/pelvic surgery previously. She does not smoke, drink alcohol or use any illicit drugs. History History 2 Elective abortions Para 1 Spontaneous abortions Hx # Term Pregnancies Ectopic pregnancies Hx # Pregnancies Multiple births Number of Living Children 0 PFSH PFSH Medical History (Updated 08/12/24 @ 08:55 by Pamela Romeo MD) Unstable lie of fetus ?O32.0XX0 - Maternal care for unstable lie, not applicable or unspecified (ICD-10) Term ?Z34.90 - Encounter for supervision of normal , unspecified, unspecified trimester (ICD-10) 35 weeks gestation of ?Z3A.35 - 35 weeks gestation of (ICD-10) Depression ?F32.A - Depression, unspecified (ICD-10) PCOS (polycystic ovarian syndrome) ?E28.2 - Polycystic ovarian syndrome (ICD-10) Social History What is your current living situation?: I presently have a place to live Problems where you live: no known problems In the past 12 months, utilities in danger of being shut off: no In past 12 months, lack of transportation kept you from medical appts, meetings, work, or getting things needed for daily living: no In the past 12 mos, have been you worried that your food would run out before you had money to buy more?: never true In the past 12 mos, the food you bought just didn't last and you didn't have money to buy more?: never true Smoking Status: Never smoker Do you use any of these nicotine containing products: None How often do you have a drink containing alcohol: never How often do you have six or more drinks on one occasion: Never AUDIT-C Alcohol total score: 0 Non-prescribed substance use: denies use Caffeine: Yes How often does anyone, including family, friends and others, physically hurt you: never How often does anyone, including family, friends and others, insult or talk down to you: never How often does anyone, including family, friends and others, threaten you with harm: never How often does anyone, including family, friends and others, scream or curse at you: never Are you using contraception or practicing any form of control: No Meds Home Medications and Allergies Home Medications ?Medication ?Instructions ?Recorded ?Confirmed ?Type vit no.95-ferrous 1 tab PO DAILY 01/21/23 08/12/24 History fumarate 28 mg-folic acid 800 mcg tablet ( Multivitamins) fluoxetine 10 mg capsule (Prozac) 10 mg PO DAILY 05/05/23 08/12/24 History hydrocodone 5 mg-acetaminophen 325 1 tab PO Q6H PRN pain #20 tabs 05/06/23 08/12/24 Rx mg tablet ondansetron 4 mg disintegrating 4 mg PO Q8H PRN 08/11/24 08/12/24 History tablet Allergies Allergy/AdvReac Type Severity Reaction Status Date / Time No Known Drug Allergies Allergy Verified 05/06/23 07:10 OB - H&P: Exam Physical Exam: Vital signs: Temp Pulse BP Pulse Ox 98.2 F 72 106/58 L 99 08/12/24 04:23 08/12/24 04:23 08/12/24 04:23 08/12/24 03:23 Narrative: General: Alert and oriented, in no acute distress between contractions. When jose david, she positions and breathe through. Psych: Appropriate mood and affect. Abdomen: Gravid. Uterine tone is soft in between contractions. Slight tenderness to palpation, but nothing marked. Contractions do palpate, [id number]. Vertex presentation on ultrasound. Cervix: Closed on previous exam around 0000. heart rate: Category 2. Baseline of 140 beats per minute, moderate variability, intermittent accelerations but also periods of seemingly spontaneous decelerations with late morphology. Specifically, this is noted around 0540, ?0553 (though interrupted), 0604 and at 0620 there is a variable. I was present at the bedside, evaluating and discussing with patient throughout this time. She was concurrently noting increasingly regular and painful contractions about every 2-3 minutes. These were increasing significantly in intensity through time, rated as a 6/10 with contractions and 1/10 pelvic discomfort with rest. OB - CN: A/P Assessment and Plan (1) Placental abruption: Status: Acute (2) hemorrhage: Status: Acute (3) Polyhydramnios: Status: Acute Plan Florinda is a 34-year-old at 32w5d GA who presented with vaginal bleeding concerning for placental abruption. She is an established patient of [facility], is complicated by obesity, depression, nausea/vomiting and polyhydramnios. Patient had presented earlier in the evening for decreased movement and dizziness - had reassuring status and improvement of symptoms with IV fluid. She subsequently return to care after an episode of bright red vaginal bleeding at home. Initial monitoring was category 1, where a 2nd large volume bleeding episode occurred while in triage. Ultrasound was requested, with tech report potentially consistent with a placental abruption. Ob consult was requested at [address] Guerrero. Requested stat Radiology read and labs as I presented to the bedside. BMZ was requested and administered in hopes of prolongation, but acknowledging this is unlikely to provide benefit with imminent delivery. On arrival, patient was just having her labs drawn. status had noted to change, now category 2 with seemingly spontaneous decelerations intermittently with late morphology and a single variable. Between these episodes, baseline was reassuring at 140 beats per minute with moderate variability and intermittent accelerations. No further red vaginal bleeding was ongoing. Explained my clinical concern for placental abruption, where potential next steps could include transfer to a tertiary care center if maternal/ status is stable versus proceeding with an emergency primary here maternal/ status is unstable. During our conversation, maternal/ resuscitation efforts were ongoing with placing secondary IVs and lab evaluation. Lab evaluation was notable for baseline hemoglobin of 10.8, platelets of 111, INR 0.94, APTT of 25 and fibrinogen of 477. Clinically, persistent category 2 heart rate tracing was noted where maternal condition seem to be worsening in the setting of increased frequency and severity of contractions. Decision was made to proceed with urgent primary locally in the setting of unstable maternal/ status for transfer in the setting of placental abruption. Dr. Guerrero to serve as Peds provider, who also called [facility] to coordinate NICU transfer. I did explain to Florinda that her baby will require transfer, where we do recommend 24 hours of observation after to ensure stability before dismissal to be with her . She expressed understanding is agreeable. We discussed the risks of in detail including bleeding, infection, damage to surrounding structures and medicals complications of surgery/anesthesia such as heart attack, stroke and VTE. I specifically counseled her that she is at an increased risk of hemorrhage in the setting of ongoing placental abruption, she is a candidate for all uterotonics if necessary. She would be agreeable to blood transfusion if necessary. 2 units of blood requested to be cross-matched, [address] Plan perioperative Ancef. Blood type O-negative, plan cord blood at time of delivery. Pediatrics provider to attend delivery in the setting of prematurity and suspected abruption. All questions answered to the best my abilities. Are change of shift occurred at 0700 where as far was provided to oncoming mirror installer Dr. Marcum. Plan to proceed with her with Dr. Marcum acting as primary, however I will assist given acuity of case and for continuity of care. Please see her subsequent operative note for details.
[2024-08-12] MEDS: BETAMETHASONE SOD PHOS/ACETATE 6 MG/ML ML 12 MG IM (05:52)
[2024-08-12 05:57] LABS: Hematocrit 32.4 % (33.0-51.0); Hemoglobin* 10.8 gm/dL (12.0-16.0); Immature Granulocytes Pct Auto 0.3 %; Mean Corpuscular HGB Conc 33 gm/dL (32-36); Mean Corpuscular Hemoglobin 30 pg (26-34); Mean Corpuscular Volume 90 fL (80-100); RDW Coefficient of Variation % 13.8 % (11.5-15.5); Red Blood Count 3.59 m/uL (4.00-5.20); White Blood Count* 11.20 K/uL (4.50-11.00)
[2024-08-12 06:00] LABS: Immature Granulocytes Abs Auto 0.00 K/uL (0.00-0.30); Lymphocytes Absolute Auto 1.60 K/uL (0.90-2.90); Slide Review Reflex No
[2024-08-12 06:19] LABS: INR 0.94 (0.91-1.10); Prothrombin Time 13.4 Seconds
--- NOTE | 2024-08-12 07:19 | P.ANES_ITS ---
Anesthesia Charges Start Date/Time Anesthesia Start Date: 08/12/24 Anesthesia Start Time: 07:07 Stop Date/Time Anesthesia Stop Date: 08/12/24 Anesthesia Stop Time: 08:56 Summary Emergency: BIOINFORMATICS RESEARCH TECHNICIAN Coding CPT Codes CPT Codes: ANESTH CS DELIVERY - 93100 ([id number]) P2 - PATIENT W/MILD SYST DISEASE, QK - LEGAL FILE CLERK 2-4 CNCRNT ANES PROC, QX - BIOINFORMATICS RESEARCH TECHNICIAN SVC W/ MD MED DIRECTION Additional Codes: Summary - Emergency: BIOINFORMATICS RESEARCH TECHNICIAN ([id number])
--- NOTE | 2024-08-12 07:19 | W.ANESCHARGE ---
Anesthesia Charges Start Date/Time Anesthesia Start Date: 08/12/24 Anesthesia Start Time: 07:07 Stop Date/Time Anesthesia Stop Date: 08/12/24 Anesthesia Stop Time: 08:56 Summary Emergency: OVERNIGHT CAREGIVER Coding CPT Codes CPT Codes: ANESTH CS DELIVERY - 97103 ([id number]) P2 - PATIENT W/MILD SYST DISEASE, QK - ROUNDHOUSE WORKER 2-4 CNCRNT ANES PROC, QX - OVERNIGHT CAREGIVER SVC W/ MD MED DIRECTION Additional Codes: Summary - Emergency: OVERNIGHT CAREGIVER ([id number])
--- NOTE | 2024-08-12 07:21 | P.NB_ITS ---
Nerve Block Nerve Block Time Seen by Provider: 08:45 Date Seen: 08/12/24 Type of block requested by surgeon for post-operative analgesia: TAP Side: bilateral Time out performed: Yes Verification of patient name: Yes Verification of date of : Yes Site marking: site marked Name of person performing procedure: Alberto Saldivar Continuous monitoring Was continuous monitoring of O2 sat, B/P, lunchroom monitor, recorded every 15 minutes?: Yes Procedure Checklist: sterile prep, needles and gloves Ultrasound guided. Images saved: Yes Medications given in 5ml increments after negative aspiration: Marcaine %: 0.25 mL: 30 Needle gauge: 20 and Exparel mL: 10 Needle gauge: 20 Patient tolerated procedure well: Yes Additional comments: Injected in 5ml increments after negative aspiration Block Charges Block Charge (with Pro Fee): TAP Bilateral Use of Ultrasound Machine for Block: Yes- US Guidance/pain block
[2024-08-12] MEDS: TRANEXAMIC ACID 100 MG/ML INJ 1000 MG IV (07:30)
[2024-08-12 07:55] LABS: Hematocrit 31.4 % (33.0-51.0); Hemoglobin* 10.6 gm/dL (12.0-16.0); Immature Granulocytes Pct Auto 1.1 %; Mean Corpuscular HGB Conc 34 gm/dL (32-36); Mean Corpuscular Hemoglobin 30 pg (26-34); Mean Corpuscular Volume 90 fL (80-100); RDW Coefficient of Variation % 13.9 % (11.5-15.5); Red Blood Count 3.51 m/uL (4.00-5.20); White Blood Count* 14.13 K/uL (4.50-11.00)
[2024-08-12 08:01] LABS: Immature Granulocytes Abs Auto 0.20 K/uL (0.00-0.30); Lymphocytes Absolute Auto 1.20 K/uL (0.90-2.90); Slide Review Reflex No
[2024-08-12 08:18] LABS: INR 1.01 (0.91-1.10); Prothrombin Time 14.1 Seconds
--- NOTE | 2024-08-12 08:39 | P.OBPRC_ITS ---
OB Delivery Proc Additional Procedures Tubal Ligation at the time of : No Other: No Procedure Date of procedure: 08/12/24 Pre-op diagnosis: IUP at 32 5/7 weeks Vaginal bleeding in third trimester, Suspected placental abruption Post-op diagnosis: same (Placental abruption, hemorrhage) Procedure Done: only Will [facility] bill your pro fee for this procedure?: Yes Blood Loss Measurement Type: QBL (1555mL) Bakri Used: No IV fluids (mL): 1,800 Urine Output (mL): 100 Urine Output Comment: Concentrated looking at end of surgery Surgeon: Juarez Marcum MD Costume Rental Clerk: Poonam Romeo MD Anesthesia Type: Spinal Findings: FINDINGS: Large amount of clots noted after hysterotomy, Live-born female infant, vertex presentation, Apgars 4 and 7 at 1 and 5 minutes respectively. weight 5 lb 1 oz. Hysterotomy vaginal extension on the right side of about 2-3cm. Intact bladder. Procedure Name: Primary Low Transverse Section Procedure Description: PROCEDURE: After obtaining informed consent, the patient was taken to the operating room where spinal anesthesia was obtained and found to be adequate. She was prepared and draped in the normal sterile fashion in the dorsal supine position with a leftward tilt. A Pfannenstiel skin incision was made with a scalpel about 2 cm above symphysis pubic bone, 12-14 cm in length. This incision was carried down to the underlying layer of fascia with the Bovie and scalpel. The fascia was incised in the midline and the incision extended laterally. The rectus muscles were then in the midline and peritoneum entered bluntly. The Ralf O retractor was then placed into the incision. The lower uterine segment was then incised in a transverse fashion with the scalpel. Upon entry into the uterus, large amount of blood clots noted. The uterine incision was extended cephalo caudally with blunt finger fractionation. The infant's head was delivered atraumatically, followed by the remainder of the infant's body. The cord was doubly clamped and cut, and the infant was handed off the field to warm for evaluation. Umbilical cord traction did not produce delivery of the placenta instead it avulsed quite easily. Manual removal of placenta followed and no concern for abnormal placentation as placenta detached easily all over. The uterus was cleared of all clots and debris. Uterine atony identified and treated with 40 units of Oxytocin, 1 dose of IM Methergine and 1g of TXA. Due to concerning QBL at this time in the setting of placental abruption, we collected repeat labs but also decision was made to start transfusion of 1 unit of PRBC until bleeding was completely managed. The uterine incision was reapproximated in a running locking fashion with a 0 Vicryl suture. A 2nd layer of the same suture was used to imbricate in horizontal fashion. Elroy of hysterotomy extension was identified and grasped with Allis clamp and utilizing Vicryl 0 suture tissue approximated in a running locking fashion. Hemostasis secured. Nia placed over hysterotomy and extension to further secure hemostasis. The gutters were inspected and cleared of blood clots. All instruments and retractors were removed. Peritoneal layer was identified and grasped with Ananya clamps and approximated in a running non locking fashion with Vicryl 3-0. Subfascial tissues inspected and hemostasis secured. The fascia was reapproximated in a running fashion with a looped 0 Vicryl suture. The subcutaneous tissues were inspected, irrigated and hemostasis was assured. The subcutaneous fat layer was reapproximated with running sutures of 3-0 Vicryl. The skin was closed in a subcuticular fashion with 4-0 Monocryl. LiquiBand and dressing were applied. The patient tolerated the procedure well. Sponge, lap, needle, and instrument counts were reported as correct x2. The patient was taken to the recovery room, awake, and in stable condition. She did receive 2 grams of IV Ancef preoperatively. Pathology: specimen obtained, sent to pathology (Placenta) Surgery Debrief Performed: Yes Condition: stable Disposition: floor
--- NOTE | 2024-08-12 09:15 | P.ANES_ITS ---
Anesthesia Charges Start Date/Time Anesthesia Start Date: 08/12/24 Anesthesia Start Time: 07:07 Stop Date/Time Anesthesia Stop Date: 08/12/24 Anesthesia Stop Time: 08:56 Summary Emergency: PEPE Coding CPT Codes CPT Codes: ANESTH CS DELIVERY - 51537 ([id number]) QK - CAR AUDIO INSTALLER 2-4 CNCRNT ANES PROC, QX - CUSHION SPRING ASSEMBLER SVC W/ MD MED DIRECTION, P2 - PATIENT W/MILD SYST DISEASE Additional Codes: Summary - Emergency: PEPE ([id number])
--- NOTE | 2024-08-12 09:15 | W.ANESCHARGE ---
Anesthesia Charges Start Date/Time Anesthesia Start Date: 08/12/24 Anesthesia Start Time: 07:07 Stop Date/Time Anesthesia Stop Date: 08/12/24 Anesthesia Stop Time: 08:56 Summary Emergency: PEPE Coding CPT Codes CPT Codes: ANESTH CS DELIVERY - 21670 ([id number]) QK - TECHNOLOGY EDUCATION TEACHER 2-4 CNCRNT ANES PROC, QX - AIRCONDITIONING ENGINEER SVC W/ MD MED DIRECTION, P2 - PATIENT W/MILD SYST DISEASE Additional Codes: Summary - Emergency: PEPE ([id number])
[2024-08-12] MEDS: ACETAMINOPHEN 500 MG TABLET 1000 MG PO ×3 (11:04→23:03)
[2024-08-12 14:09] LABS: Hematocrit 33.8 % (33.0-51.0); Hemoglobin* 11.1 gm/dL (12.0-16.0); Immature Granulocytes Pct Auto 1.3 %; Mean Corpuscular HGB Conc 33 gm/dL (32-36); Mean Corpuscular Hemoglobin 29 pg (26-34); Mean Corpuscular Volume 88 fL (80-100); RDW Coefficient of Variation % 15.3 % (11.5-15.5); Red Blood Count 3.86 m/uL (4.00-5.20); White Blood Count* 14.70 K/uL (4.50-11.00)
[2024-08-12 14:11] LABS: Immature Granulocytes Abs Auto 0.20 K/uL (0.00-0.30); Lymphocytes Absolute Auto 0.60 K/uL (0.90-2.90); Slide Review Reflex No
[2024-08-12 14:29] LABS: INR 1.02 (0.91-1.10); Prothrombin Time 14.2 Seconds
[2024-08-12] MEDS: LACTATED RINGERS 1000 ML 1,000 ML 125 ML IV (16:40)
[2024-08-12] MEDS: SODIUM CHLORIDE 0.9 % (FLUSH) 10 ML SYRINGE IVF (20:10)
[2024-08-12] MEDS: CYCLOBENZAPRINE HCL 10 MG TABLET PO (23:17)
[2024-08-13 00:05] VITALS: BP 110/58; PULSE 60; RESP 18; TEMP 36.6; O2SAT 96
[2024-08-13] MEDS: SIMETHICONE 80 MG TAB.CHEW PO ×5 (00:21→23:33)
[2024-08-13] MEDS: SODIUM CHLORIDE 0.9 % (FLUSH) 10 ML SYRINGE IVF (03:38)
[2024-08-13 04:29] VITALS: BP 98/63; PULSE 60; RESP 16; TEMP 36.6; O2SAT 95
[2024-08-13] MEDS: ACETAMINOPHEN 500 MG TABLET 1000 MG PO ×4 (05:34→23:33)
[2024-08-13 07:00] LABS: Hemoglobin* 10.7 gm/dL (12.0-16.0)
[2024-08-13 08:00] VITALS: BP 94/67; PULSE 80; RESP 16; TEMP 36.6; O2SAT 97
[2024-08-13] MEDS: DOCUSATE SODIUM 100 MG CAPSULE PO (08:02)
--- NOTE | 2024-08-13 10:53 | PM.OBPNVD1 ---
OB - PN:Subj Subjective Time Seen by Provider: 09:00 Date Seen: 08/13/24 Narrative: Florinda is a G2, now P2 admitted at 32w5d on 08/10/24 for vaginal bleeding that was ultimately diagnosed as placental abruption. She underwent a delivery complicated by intraoperative hemorrhage. Received 1u of pRBC intraop. Overnight patient had poor pain control, improved this morning. Her pain is controlled on oral pain medications. She is tolerating a regular diet. She has passed flatus. She is not yet ambulating without difficulty. Lochia is scant. She is urinating without mo. Patient denies chest pain, SOB, n/v, headache, RUQ pain, vision changes, dizziness. OB - PN: Obj Exam Physical Exam: Vital signs: Temp Pulse Resp BP Pulse Ox O2 Del Method 97.8 F 80 16 94/67 97 Room Air 08/13/24 08:00 08/13/24 08:00 08/13/24 08:00 08/13/24 08:00 08/13/24 08:00 08/13/24 08:00 Narrative: Physical exam: General: No acute distress Psych: Alert and oriented x4, full affect HEENT: Normocephalic, atraumatic Heart: Regular rate and rhythm, no murmur rub or gallop Lungs: Clear to auscultation bilaterally Abdomen: Soft, no tenderness, rebound, or guarding. Uterus firm 3 cm below umbilicus Incision(s): Mepilex dressing removed. Appropriately tender to palpation. Clean, dry, and intact. No erythema, induration, or abnormal discharge/breakdown Skin: No lesions or rashes Lower extremities: Trace bilateral lower extremity edema Pelvic exam: Scant bleeding on pad OB - PN: Obj Data Labs Labs: Laboratory Results - last 24 hr 08/12/24 08/12/24 08/13/24 05:50 14:02 06:55 WBC 14.70 H RBC 3.86 L Hgb 11.1 L 10.7 L Hct 33.8 MCV 88 MCH 29 MCHC 33 RDW Coeff of Amado 15.3 Plt Count 102 L Neut % (Auto) 90.7 H Lymph % (Auto) 4.4 L Waller % (Auto) 3.5 Eos % (Auto) 0.0 Baso % (Auto) 0.1 Neut # (Auto) 13.30 H Lymph # (Auto) 0.60 L Waller # (Auto) 0.50 Eos # (Auto) 0.00 Baso # (Auto) 0.00 Abs Immat Gran (auto) 0.20 Imm/Tot Granulo (auto) 1.3 INR 1.02 APTT 25 Fibrinogen 488 H Antibody Identification Anti-D Screen Negative Crossmatch (AHG) See Detail OB - PN: A/P Delivery Assessment and Plan (1) Placental abruption: Status: Acute Assessment and Plan: s/p delivery on 08/12/24 (2) hemorrhage: Status: Acute Assessment and Plan: s/p 1u of pRBC intraoperatively stable hgb at 10.7 this AM VSS Patient has fatigue but otherwise denies dizziness or palpitations with positional changes (3) Acute blood loss anemia: Status: Acute Assessment and Plan: - PO iron every other day Plan - Patient is agreeable to staying to optimize pain regimen. Dispo: Patient is POD#1. Anticipate discharge POD#2.
[2024-08-13 15:32] VITALS: BP 104/67; PULSE 74; RESP 16; TEMP 36.6; O2SAT 97
[2024-08-13] MEDS: IBUPROFEN 600 MG TABLET PO (20:42)
[2024-08-13 23:48] VITALS: BP 121/76; PULSE 98; RESP 16; TEMP 36.7; O2SAT 99
[2024-08-14] MEDS: IBUPROFEN 600 MG TABLET PO ×2 (02:37→08:43)
[2024-08-14] MEDS: ACETAMINOPHEN 500 MG TABLET 1000 MG PO ×2 (05:41→12:07)
[2024-08-14] MEDS: SIMETHICONE 80 MG TAB.CHEW PO ×2 (05:42→12:11)
--- NOTE | 2024-08-14 08:06 | PM.OBDSVD1 ---
DS: Providers Provider Time Seen by Provider: 07:45 Date Seen: 08/14/24 Date of admission: 08/12/24 06:48 Primary care physician: Shari Guerrero MD Admitting Clinician: Pamela Romeo MD Consults: 08/12/24 05:48 Consult to Physician [CONS] Routine Comment: Consulting Provider: Pamela Romeo Has provider been notified: Yes Attending Physician on discharge: Anneliese Leo MD Date of Discharge: 08/14/24 DS: Diagnosis Discharge Diagnosis (1) S/P section: Status: Acute (2) Placental abruption: Status: Acute (3) Acute blood loss anemia: Status: Acute Exam Const: Vital Signs, click to edit/add: Vital Signs - 24 hr 08/13/24 15:32 08/13/24 23:48 Temperature 97.9 F 98.0 F Pulse Rate [Pulse Oximeter] 74 98 Respiratory Rate 16 16 Blood Pressure [Le ft Arm] 104/67 121/76 Pulse Oximetry 97 99 Oxygen Delivery Me thod Room Air Room Air Documenting provider has reviewed patient's vital signs: yes Common normals: no apparent distress, oriented x3 and alert General appearance: cooperative and comfortable Resp: Common normals: normal respiratory effort and clear to auscultation bilaterally Auscultation: clear to auscultation bilaterally Cardio: Common normals: regular rate Rate: regular rate GI: Common normals: soft to palpation and non-tender Inspection: incision Inspection of incision: healing well Palpation: soft Other: Fundus firm Extremity: Common normals: normal to inspection and no pedal edema Neuro: Common normals: oriented x3 Sensorium/orientation: alert Psych: Common normals: mental status grossly normal OB - DS: Summary Hospital Course Hospital Course: The patient is a 34 year old G 2 now P 1102 that was admitted to the Center on 08/12/24 at 32 5/7 weeks gestation for vaginal bleeding concerning for placental abruption. She had a primary low transverse section complicated by hemorrhage. She was transfused 1 unit packed red blood cells intraoperatively. She delivered a viable female who was subsequently transferred to [facility] NICU. She is breast pumping. the patient has done well. Pain control has been adequate overnight. Peripartum Data delivery method: Primary C/S; Non-Labored Procedures: Procedures Operation Date: 08/12/24 07:15 Actual Procedure Side Surgeon p PRIMARY LOW TRANSVERSE Section Not Applicable Pamela Romeo MD complications: other (PPH) Infant Gender: Female Status at Discharge Functional status at discharge: independent ambulation Overall status at discharge: patient is back to baseline Time Spent with Patient Time attestation: Total time spent providing and/or coordinating discharge services: Time spent: Less than 30 minutes Discharge Plan Discharge Disposition: Home, Self-Care Date of Admission: 08/12/24 06:48 Consulting Providers: Pamela Romeo Primary Care Provider: Shari Guerrero Condition: Stable Anticipated Discharge Date/Time: 08/14/24 08:14 Discharge Medications: New ferrous sulfate 325 mg (65 mg iron) Tablet 325 mg PO Q48H Qty: 30 0RF docusate sodium 100 mg Capsule 100 mg PO DAILY Qty: 30 0RF ibuprofen 600 mg Tablet 600 mg PO Q6H PRN (Reason: Pain) Qty: 30 0RF oxycodone 5 mg Tablet 5 - 10 mg PO Q6H PRN (Reason: Pain) Qty: 20 0RF Continued PNV [id number] fumarate-FA [ Multivitamins] 28 mg iron- 800 mcg tablet 1 tab PO DAILY fluoxetine [Prozac] 10 mg capsule 10 mg PO DAILY ondansetron 4 mg tablet,disintegrating 4 mg PO Q8H PRN Discontinued hydrocodone-acetaminophen 5-325 mg tablet 1 tab PO Q6H PRN (Reason: pain) Qty: 20 0RF Discharge Orders: Discharge Order (Routine); Ordered 08/14/24 Ordered By: Anneliese Leo Patient Education: OB [facility], OB /Breast Feeding, OB Over the Counter Medication Information Activity Level: Activity as Tolerated Discharge Diet: Regular Follow Up Appointments: Shari Guerrero MD [Primary Care Provider, Family Practice] Forms: [employer] Info Instructions DS:Data Additional Comments Additional comments: Hgb 10.7
[2024-08-14 08:32] VITALS: BP 110/73; PULSE 81; RESP 16; O2SAT 99
[2024-08-14] MEDS: DOCUSATE SODIUM 100 MG CAPSULE PO (08:43)
[2024-08-14] MEDS: FERROUS SULFATE 325 MG TABLET PO (08:43)
== END 2024-08-14 12:27 | disposition home or self-care (01) | DRG 540 ==
LOC: OB OUT 06:50 → OB 11:27
PROVIDERS: Obstetrics & Gynecology; Admitting Provider Obstetrics & Gynecology; PCP Family Medicine; Referring Provider Family Medicine; Visit Provider Obstetrics & Gynecology
PROC: 10D00Z1 Extraction of Products of Conception, Low, Open Approach (ICD-10-PCS; CPT 59514; principal; 2024-08-12 07:15)
DX: O45.93 Premature separation of placenta, unspecified, third trimester (principal); O72.1 Other immediate postpartum hemorrhage; G89.18 Other acute postprocedural pain; O90.81 Anemia of the puerperium; D62 Acute posthemorrhagic anemia; O40.3XX0 Polyhydramnios, third trimester, not applicable or unspecified; O36.8130 Decreased fetal movements, third trimester, not applicable or unspecified; O21.0 Mild hyperemesis gravidarum; O99.344 Other mental disorders complicating childbirth; F32.A Depression, unspecified; O99.214 Obesity complicating childbirth; Z37.0 Single live birth; Z3A.32 32 weeks gestation of pregnancy
CPT/HCPCS: 01961; 36415; 59025; 64488; 76815; 76942; 85018; 85025; 85384; 85460; 85461; 85610; 85730; 86592; 86850; 86870; 86880; 86900; 86901; 86922; 99140; G0463; A4314; A9270; J0169; J0665; J0666; J0690; J0702; J1100; J1885; J2210; J2371; J2405; J2590; J2791; J7120; P9016